=== PATIENT | male | born 1995 | race Caucasian/White ===

== ENCOUNTER → 2017-09-22 | Outpatient (CLI) | payer BC ==
--- NOTE | 2017-09-22 12:41 | Diagnostic Imaging Report ---
PROCEDURE:SOFT TISSUE EXTREMITY ULTRASOUND COMPARISON:None. INDICATIONS:Mass of Left Lower Leg TECHNIQUE:Grayscale and color duplex Doppler ultrasound evaluation analysis was performed of the left anteromedial noriega in the usual manner. FINDINGS: The palpable abnormality in the left anteromedial noriega corresponds to an echogenic, circumscribed, 3.2 x 1.3 x 2.9 cm subcutaneous mass with internal vascularity. This may represent a lipoma. Recommend followup imaging if this mass increases in size or becomes painful. CONCLUSION: As above Dictated by: Jose Juan Card M.D. on 09/22/2017 at 12:47 Electronically approved by: Jose Juan Card M.D. on 09/22/2017 at 12:47
== END ==
LOC: US 11:54
PROVIDERS: ATTEND Family Medicine
DX: R22.42 Localized swelling, mass and lump, left lower limb (principal)
CPT/HCPCS: 76882